=== PATIENT | female | born 1930 | race Caucasian/White ===

== ENCOUNTER 2016-09-26 19:40 | Emergency (ER) | payer MEDICARE, BC ==
[2016-09-26 20:05] VITALS: BP 127/64
[2016-09-26] MEDS ORDERED: Tetan/Diph/Pertus SYR(Tdap)* 0.5 ML SYR(BOOSTRIX) use SYR IM ONE (20:22)
[2016-09-26] MEDS ORDERED: Amoxicillin/Clavulanate TAB* 875 MG PO ONE ×2 (20:22→20:23)
--- NOTE | 2016-09-26 20:22 | UC ---
Skin Complaint HPI - HPI Summary HPI Summary: 86 yo female s/p cat bite to dorsum of left hand and scratch to right thumb occurred this AM outdoor cat unsure of immunization status able to observe pt unsure of her last tetanus - History of Current Complaint Chief Complaint: UCSkin Time Seen by Provider: 09/26/16 20:13 Stated Complaint: CAT BITE/SCRATCHES Onset/Duration: Sudden Onset, Lasting Days Skin Exposure Onset/Duration: Hours Ago Timing: Constant Onset Severity: Mild Current Severity: Mild Pain Intensity: 4 Pain Scale Used: 0-10 Numeric Location: Discrete Character: Pain Aggravating: Touch Alleviating: Nothing Associated Signs & Symptoms: Positive: Bruising Related History: Trauma - bite aned scratch /cat - Allergy/Home Medications Allergies/Adverse Reactions: Allergies Allergy/AdvReac Type Severity Reaction Status Date / Time No Known Allergies Allergy Verified 09/26/16 20:04 Home Medications: Home Medications Ascorbic Acid TAB* [Vitamin C TAB*] 500 mg PO DAILY 09/26/16 [History Confirmed 09/26/16] Aspirin [Aspirin 81 MG TAB] 81 mg PO DAILY 09/26/16 [History Confirmed 09/26/16] Cholecalciferol [Vitamin D] 2,000 unit PO DAILY 09/26/16 [History Confirmed 03/03] Latanoprost 0.005%* [Xalatan 0.005%*] 1 drop BOTH EYES QPM 09/26/16 [History Confirmed 09/26/16] Meloxicam(NF) [Mobic(NF)] 15 mg PO DAILY 09/26/16 [History Confirmed 09/26/16] Pravastatin (NF) [Pravachol (NF)] 20 mg PO 1700 09/26/16 [History Confirmed 03/03] Timolol 0.25% OPHTH.SOLN* [Timoptic Ophth.soln 0.25%] 1 drop BOTH EYES DAILY 03/03 [History Confirmed 09/26/16] amLODIPine TAB* [Norvasc 5 mg TAB*] 2.5 mg PO DAILY 09/26/16 [History Confirmed 09/26/16] Review of Systems Constitutional: Negative Skin: Bruising Eyes: Negative ENT: Negative Respiratory: Negative Cardiovascular: Negative Gastrointestinal: Negative Genitourinary: Negative Motor: Negative Neurovascular: Negative Musculoskeletal: Negative Neurological: Negative Psychological: Negative All Other Systems Reviewed And Are Negative: Yes PMH/Surg Hx/FS Hx/Imm Hx Previously Healthy: Yes Endocrine History: Dyslipidemia Cardiovascular History: Hypertension - Surgical History Surgical History: Yes Surgery Procedure, Year, and Place: bilat knee replacements, partial hysterectomy - Family History Known Family History: Positive: Hypertension Negative: Diabetes - Social History Alcohol Use: None Substance Use Type: None Smoking Status (MU): Never Smoked Tobacco - Immunization History Most Recent Tetanus Shot: unknown Physical Exam Triage Information Reviewed: Yes Appearance: Well-Appearing Vital Signs: Initial Vital Signs Temp 98 F 09/26/16 19:58 Pulse 78 09/26/16 19:58 Resp 18 09/26/16 19:58 BP 127/64 09/26/16 19:58 Pulse Ox 98 09/26/16 19:58 Eye Exam: Normal ENT: Negative: Hearing grossly normal, Nasal congestion, Nasal drainage, Trismus , Muffled/hoarse voice Neck: Positive: Nontender, No Lymphadenopathy Respiratory: Positive: Lungs clear, Normal breath sounds, No respiratory distress, No accessory muscle use Cardiovascular: Positive: RRR, No Murmur Musculoskeletal: Positive: ROM Intact, No Edema Neurological: Positive: Alert Psychological Exam: Normal Skin Exam: Other - see image Course/Dx - Diagnoses Provider Diagnoses: cat bite left hand. cat scratches right thumb Discharge - Discharge Plan Condition: Stable Disposition: HOME Prescriptions: Amoxicillin/Clavulanate TAB* [Augmentin TAB 875*] 875 mg PO BID #12 tab Patient Education Materials: Animal Bite (ED) Referrals: Jaimie Portillo MD [Primary Care Provider] - 1 Day Additional Instructions: cats bites to the hand are notorious for getting infected this needs close follow up despite being on antibiotic this still could get infected gently clean twice daily with soap and water apply antibiotic ointment ( I like polysproin or aquafor healing ointment) dressing recheck with your MD in 1-2 days TO er for fever or increased pain/swelling/redness/pus Images Hands: 1 - parallel superficial scratches 2 - 3 cm laceration/1mm wide/2-3 mm deep. surrounding ecchymosis
== END 2016-09-26 21:05 | disposition home or self-care (01) ==
LOC: UCCORT 19:40
DX: S61.452A Open bite of left hand, initial encounter (principal); W55.01XA Bitten by cat, initial encounter; Y93.9 Activity, unspecified; Y92.9 Unspecified place or not applicable; Y99.9 Unspecified external cause status; S60.311A Abrasion of right thumb, initial encounter; W55.03XA Scratched by cat, initial encounter; I10 Essential (primary) hypertension; E78.5 Hyperlipidemia, unspecified
CPT/HCPCS: 90471; 90715; 99203; A9270-GY; G0463

== ENCOUNTER 2017-02-11 19:20 | Emergency (ER) | payer MEDICARE, BC ==
--- NOTE | 2017-02-11 20:17 | UC ---
Complaint Female HPI - HPI Summary HPI Summary: 87 year old female presents with gross hematuria. - History Of Current Complaint Stated Complaint: UTI SYMPTOMS Time Seen by Provider: 02/11/17 20:17 Hx Obtained From: Patient Onset/Duration: Sudden Onset Timing: Constant Severity Initially: Moderate Severity Currently: Moderate - Allergies/Home Medications Allergies/Adverse Reactions: Allergies Allergy/AdvReac Type Severity Reaction Status Date / Time No Known Allergies Allergy Verified 02/11/17 20:28 PMH/Surg Hx/FS Hx/Imm Hx Previously Healthy: Yes - Surgical History Surgical History: Yes Surgery Procedure, Year, and Place: bilat knee replacements, partial hysterectomy - Family History Known Family History: Positive: Hypertension Negative: Diabetes - Social History Alcohol Use: None Substance Use Type: None Smoking Status (MU): Never Smoked Tobacco - Immunization History Most Recent Tetanus Shot: unknown Review of Systems Constitutional: Negative Skin: Negative Eyes: Negative ENT: Negative Respiratory: Negative Cardiovascular: Negative Gastrointestinal: Negative Genitourinary: Hematuria Motor: Negative Neurovascular: Negative Musculoskeletal: Negative Neurological: Negative Psychological: Negative All Other Systems Reviewed And Are Negative: Yes Physical Exam Triage Information Reviewed: Yes Vital Signs Reviewed: Yes Eye Exam: Normal ENT Exam: Normal Dental Exam: Normal Neck exam: Normal Neck: Positive: 1 Respiratory Exam: Normal Cardiovascular Exam: Normal Abdominal Exam: Normal Musculoskeletal Exam: Normal Neurological Exam: Normal Psychological Exam: Normal Skin Exam: Normal Complaint Female Dx - Differential Dx/Diagnosis Provider Diagnoses: hematuria Discharge - Discharge Plan Condition: Stable Disposition: HOME Prescriptions: Phenazopyridine 200 mg (NF) [Pyridium 200 MG tab *] 200 mg PO TID PRN #9 tab PRN Reason: Pain Sulfamethox/Trimethoprim DS* [Bactrim DS 800/160 TAB*] 1 tab PO BID #10 tab Patient Education Materials: Urinary Tract Infection in Women (ED), Hematuria ( ED) Referrals: Osmany Morrison DO [Primary Care Provider] -
[2017-02-11 20:28] VITALS: BP 134/74
[2017-02-12 11:14] LABS: Urine Bacteria Absent (Absent); Urine Bilirubin Negative (Negative); Urine Glucose Negative (Negative); Urine Nitrite Negative (Negative)
== END 2017-02-11 20:35 | disposition home or self-care (01) ==
LOC: UCCORT 19:20
DX: R31.0 Gross hematuria (principal); Z90.711 Acquired absence of uterus with remaining cervical stump; Z96.653 Presence of artificial knee joint, bilateral
CPT/HCPCS: 81003; 81015; 87077; 87086; 87186; 99212; G0463